=== PATIENT | female | born 1985 | race Caucasian/White ===

== ENCOUNTER 2017-05-28 00:33 | Emergency (ER) | payer MEDICAID ==
--- NOTE | 2017-05-28 02:20 | ER NURSING DOCUMENTATION ---
Nurse's Notes [facility] Name:Pamela Horton Age:31 yrs Sex:Female :1985 Arrival Date:05/28/2017 Time:00:33 BedTrauma-A Private MD:Mignon [facility] Diagnosis:Anaphylaxis Presentation: 05/28 00:38 Acuity: YANDEL 2 bw2 00:48 Presenting complaint: Patient states: pt states that she is having an allergic reaction bw2 to a horse fly. Transition of care: Home. Onset: The symptoms/episode began/occurred today. Anaphylaxis evaluation, no signs or symptoms of anaphylaxis were noted. 00:48 Method Of Arrival: Walk In bw2 Triage Assessment: 00:50 General: Appears in no apparent distress, Behavior is anxious, appropriate for age. bw2 Pain: Denies pain. Derm: Skin is red. Historical: - Allergies: No known drug Allergies; - Tetanus: < 10 years. - Ebola Screening: : Patient negative for fever greater than or equal to 101.5 degrees Fahrenheit, and additional compatible Ebola Virus Disease symptoms. Patient denies exposure to infectious person. Patient denies travel to an Ebola-affected area in the 21 days before illness onset. No symptoms or risks identified at this time. . - Immunization history: Flu Vaccine None. - Social history: Smoking status: Patient uses tobacco products, current every day smoker. Screenin:53 Infectious Disease Risk None. Abuse screen: Denies threats or abuse. Nutritional bw2 screening: No deficits noted. Assessment: 00:52 Neuro: No deficits noted. Respiratory: Airway is patent Respiratory effort is even, bw2 unlabored, Breath sounds are clear bilaterally. GI: No deficits noted. Vital Signs: 00:51 BP 118 / 56; Pulse 106; Resp 18; Temp 98; Pulse Ox 99% ; Weight 77.11 kg; Height 5 ft. bw2 10 in. (177.80 cm); Pain 0/10; 01:36 BP 122 / 70; Pulse 84; Resp 18; Pulse Ox 96% on R/A; bw2 00:51 Body Mass Index 24.39 (77.11 kg, 177.80 cm) bw2 ED Course: 00:33 Patient arrived in ED. em2 00:34 Physician, No is Private Physician. em2 00:38 Marifer Yañez is Primary Nurse. bw2 00:38 Triage completed. bw2 00:41 [facility] is Private Physician. em2 00:53 Valuables Remains with patient Patient has correct armband on for positive bw2 identification. Bed in low position. Cardiac Monitoring On for Nurse Monitoring only. Pulse Ox - RN Monitoring Only NIBP On - RN Monitoring Only. 00:59 Enoch Guajardo MD is Attending Physician. tl1 01:20 [facility] is Referral Physician. tl1 Administered Medications: 02:00 Drug: EPI PEN ADULT - EPINEPHrine 1:1000 0.3 mg; Volume: 0.3 ml; Route: IM; Site: left bw2 thigh; 02:19 Follow up: Response: Pharmacy closed - take home med pack bw2 Outcome: 01:20 Discharge ordered by . tl1 01:36 Discharged to home ambulatory, with significant other. bw2 01:36 Condition: good 01:36 Discharge Assessment: Patient awake, alert and oriented x 3. No cognitive and/or functional deficits noted. Patient verbalized understanding of disposition instructions. 01:36 Discharge instructions given to patient, significant other, Instructed on discharge instructions, follow up and referral plans. medication usage, Demonstrated understanding of instructions, medications, Prescriptions given X 1. 02:19 Patient left the ED. bw2 07 15:27 Discharge F/U Call: Unable to reach: no answer st Signatures: Lianet Short RN ALEXEY Whitfield-reg, Noemi-reg em2 Enoch Guajardo MD MD tl1 Chandni Yañezh bw2
--- NOTE | 2017-05-30 02:19 | ER PHYSICIAN DOCUMENTATION ---
Physician Documentation [facility] Name:Pamela Horton Age:31 yrs Sex:Female :1985 Arrival Date:05/28/2017 Time:00:33 BedTrauma-A Private MD:Mignon [facility] ED PhysicianEnoch Guajardo Disposition: 05/28 04:38 Chart complete. tl1 Disposition: 05/28/17 01:20 Discharged to Home/Self Care. Impression: Anaphylaxis. - Condition is Good. - Discharge Instructions: ANAPHYLAXIS, General. - Prescriptions for EpiPen 0.3 mg/0.3 mL Injection Injectable - inject 0.3 milligram by INTRAMUSCULAR route as needed; 1 packet. - Medical Reconciliation form form. - Follow up: Mignon [facility]; When: 2 - 3 days; Reason: Recheck today's complaints, Continuance of care. - Problem is new. - Symptoms have improved. - Notes: YOU MAY HAVE HAD AN ANAPHYLACTIC REACTION TO SOMETHING; IT IS NOT CLEAR FROM YOUR HISTORY WHAT THAT MAY HAVE BEEN. MAKE SURE TO GET YOUR EPI-PEN PRESCRIPTION FILLED AND KEEP ONE WITH YOU AT ALL TIMES. MAKE SURE TO GET A REFERRAL TO AN [facility] FOR FURTHER EVALUATION. YOU MAY NEED ALLERGY TESTING. HPI: 00:35 This 31 yrs old Female presents to ER via Walk In with complaints of Allergic tl1 Reaction. 00:35 The patient presents with itching, rash. Onset: The symptom(s)/episode began/occurred tl1 suddenly, 1.5 hour(s) ago. 00:35 She says she had a h/o anaphylaxis to something as a young child and remembers having tl1 an epi pen years ago. About 3 years ago she said she had an anaphylactic reaction to a horse fly bite. Since then she has been OK , but 2 days ago, she says she was bitten by a fly of some sort on the dorsum of her right hand. that swelled up a little, but then largely resolved and she was OK until about 1.5 hours ago she had the abrupt onset of what seemed like her to be another anaphylactic reaction, with chest tightness, diffuse red skin and itching, w/o urticaria. she has also had some air hunger, w/o wheezing and marked anxiety, but no lightheadedness. No GI symptoms. She is not aware of any apparent precipitant for these current symptoms.. Historical: - Allergies: No known drug Allergies; - Tetanus: < 10 years. - Ebola Screening: : Patient negative for fever greater than or equal to 101.5 degrees Fahrenheit, and additional compatible Ebola Virus Disease symptoms. Patient denies exposure to infectious person. Patient denies travel to an Ebola-affected area in the 21 days before illness onset. No symptoms or risks identified at this time. . - Immunization history: Flu Vaccine None. - Social history: Smoking status: Patient uses tobacco products, current every day smoker. ROS: 00:35 Cardiovascular: Positive for palpitations, Negative for chest pain, edema. tl1 00:35 Respiratory: Positive for cough, shortness of breath, Negative for wheezing. 00:35 Abdomen/GI: Negative for abdominal pain, nausea, vomiting, abdominal cramps, abdominal distension. 00:35 Skin: Positive for erythema, Negative for diaphoresis, discoloration. 00:35 All other systems are negative. Exam: 00:35 Constitutional: The patient appears alert, awake, well developed, well hydrated, well tl1 groomed, well nourished, anxious, in obvious distress, moderately distressed, restless, uncomfortable. 00:35 Head/face: Exam is negative for obvious evidence of injury or deformity, erythema. 00:35 Eyes: Exam is negative for acute changes. 00:35 ENT: Exam is negative for acute changes, Mouth: is normal, Oral mucosa: pink and intact, moist, Tongue: is normal, Voice: is normal. 00:35 Neck: ROM/movement: is normal, is supple, Lymph nodes: no appreciated lymphadenopathy. 00:35 Chest/axilla: Exam negative for acute changes. 00:35 Cardiovascular: Rate: normal, Rhythm: regular, Pulses: no pulse deficits are appreciated, Heart sounds: normal, Edema: is not appreciated. 00:35 Respiratory: the patient does not display signs of respiratory distress, Respirations: normal, Breath sounds: are normal, no decreased breath sounds, no rales, rhonchi, no stridor, no wheezing. 00:35 Abdomen/GI: Inspection: abdomen appears normal, Palpation: abdomen is soft and non-tender. 00:35 Musculoskeletal/extremity: Exam is negative for acute changes. 00:35 Skin: rash a moderate rash is noted, rash can be described as erythematous, macular. 00:35 Neuro: Exam negative for acute changes. Vital Signs: 00:51 BP 118 / 56; Pulse 106; Resp 18; Temp 98; Pulse Ox 99% ; Weight 77.11 kg; Height 5 ft. bw2 10 in. (177.80 cm); Pain 0/10; 01:36 BP 122 / 70; Pulse 84; Resp 18; Pulse Ox 96% on R/A; bw2 00:51 Body Mass Index 24.39 (77.11 kg, 177.80 cm) bw2 MDM: 00:44 Patient medically screened. tl1 02:00 Differential diagnosis: anaphylaxis, non IgE mediated drug reaction. Data reviewed: tl1 vital signs, nurses notes, and as a result, I will discharge patient. Counseling: I had a detailed discussion with the patient and/or guardian regarding: the historical points, exam findings, and any diagnostic results supporting the discharge/admit diagnosis, the need for outpatient follow up, to return to the emergency department if symptoms worsen or persist or if there are any questions or concerns that arise at home. Response to treatment: the patient's symptoms have resolved after treatment, and as a result, I will discharge patient. ED course: IM Epi, 0.3 mg IM caused prompt and complete resolution of her symptoms.. Dispensed Medications: 02:00 Drug: EPI PEN ADULT - EPINEPHrine 1:1000 0.3 mg; Volume: 0.3 ml; Route: IM; Site: left bw2 thigh; 02:19 Follow up: Response: Pharmacy closed - take home med pack bw2 Signatures: Enoch Guajardo MD MD tl1 Marifer Yañez bw2
== END 2017-05-28 02:20 | disposition home or self-care (01) ==
LOC: ER 00:33
DX: T78.2XXA Anaphylactic shock, unspecified, initial encounter (principal); R00.2 Palpitations
CPT/HCPCS: 96372; 99283